=== PATIENT | female | born 1935 | race Caucasian/White ===

== ENCOUNTER 2019-01-09 12:14 | Emergency (ER) | payer SELFPAY ==
[2019-01-09 12:26] VITALS: BMI 25.4
--- NOTE | 2019-01-09 12:55 | PDOC ---
History of Present Illness - General Chief Complaint: Ear Problem Stated Complaint: FEVER/ EAR PAIN Time Seen by Provider: 01/09/19 12:30 History Source: Patient, Care Provider - History of Present Illness Initial Comments: 01/09/19 12:55 83 year old female BIB daughter complaining of headaches, body aches, bilateral ear pain for the last week. daughter reports that patient had a cough now better. Patient reports subjective fevers for the last 3 days no fever today. denies dizziness, nausea, chest pain, urinary symptoms. Patient reports that she has pain to the right side of her body. . Past medical history of hypertension, hypercholesterolemia, diabetes. Patient isvisiting here from [facility] for the last 1 month. Denies sick contact 01/09/19 13:15 Past History - Past Medical History Allergies/Adverse Reactions: Allergies Allergy/AdvReac Type Severity Reaction Status Date / Time No Known Allergies Allergy Verified 01/09/19 12:18 COPD: No Dementia: Yes Diabetes: Yes HTN: Yes Hypercholesterolemia: Yes - Immunization History Immunization Up to Date: No - Suicide/Smoking/Psychosocial Hx Smoking History: Former smoker Have you smoked in the past 12 months: No Information on smoking cessation initiated: No Hx Alcohol Use: No Drug/Substance Use Hx: No Review of Systems - Review of Systems Able to Perform ROS?: Yes Is the patient limited Bur[place]ian proficient: No Constitutional: Yes: Fever HEENTM: Yes: Ear Pain Respiratory: Yes: Cough Cardiac (ROS): No: Symptoms Reported, See HPI, Chest Pain, Edema, Irregular Heart Rate, Lightheadedness, Palpitations, Syncope, Chest Tightness, Other ABD/GI: No: Symptoms Reported, See HPI, Abdominal Distended, Abd. Pain w/ defecation, Blood Streaked Bowels, Constipated, Diarrhea, Difficulty Swallowing , Nausea, Poor Appetite, Poor Fluid Intake, Rectal Bleeding, Vomiting, Indigestion, Abdominal cramping, Tarry Stools, Other : Yes: Flank Pain (right side) *Physical Exam - Vital Signs Last Vital Signs Temp Pulse Resp BP Pulse Ox 97.8 F 97 H 18 181/93 H 97 01/09/19 12:18 01/09/19 12:18 01/09/19 12:18 01/09/19 12:18 01/09/19 12:18 - Physical Exam General Appearance: Yes: Appropriately Dressed HEENT: positive: TM Dull (b/l mild erythema to right TM). negative: Rhinorrhea Respiratory/Chest: positive: Lungs Clear, Normal Breath Sounds Cardiovascular: positive: Regular Rate, Tachycardia Gastrointestinal/Abdominal: positive: Normal Bowel Sounds, Soft. negative: Tender Extremity: positive: Normal Capillary Refill, Normal Inspection, Normal Range of Motion Integumentary: positive: Normal Color, Dry, Warm Neurologic: positive: emergency services dispatcher II-XII NML intact, Fully Oriented, Alert, Normal Mood/ Affect ED Treatment Course - LABORATORY CBC & Chemistry Diagram: 01/09/19 12:45 01/09/19 12:45 Medical Decision Making - Medical Decision Making 01/09/19 12:57 A: headache P: cbc cmp lipase ua urine culture chest xray patient to the main ER. CHarge Nurse June mukherjee. Dr. Mace is also made aware. *DC/Admit/Observation/Transfer Diagnosis at time of Disposition: Headache Qualifiers: Headache type: unspecified Headache chronicity pattern: acute headache Intractability: not intractable Qualified Code(s): R51 - Headache - Referrals - Patient Instructions - Post Discharge Activity
[2019-01-09 13:26] LABS: BASO % 1.4 % (0-2.0); HEMATOCRIT 36.1 % (32.4-45.2); HEMOGLOBIN 12.3 GM/dL (10.7-15.3); LYMPH % 38.5 % (8-40); MCH 30.9 pg (25.7-33.7); MCHC 33.9 g/dl (32.0-36.0); MEAN CELL VOLUME 91.2 fl (80-96); MEAN PLT VOLUME 8.3 fl (7.5-11.1); NEUT % 45.1 % (42.8-82.8); PLATELET COUNT 313 K/MM3 (134-434); RBC 3.96 M/mm3 (3.60-5.2); RDW 13.6 % (11.6-15.6)
--- NOTE | 2019-01-09 13:38 | PDOC ---
History of Present Illness - General Chief Complaint: Ear Problem Stated Complaint: FEVER/ EAR PAIN Time Seen by Provider: 01/09/19 12:30 History Source: Patient, Family (Daughter) Exam Limitations: Language Barrier (Zimbabwean only) - History of Present Illness Initial Comments: 83 yo F, HTN, HLD, NIDDM, hx kidney stone, hip replacement, p/w R ear pain. [place]an speaking only, has been in [place] for [place] 6 weeks. Had stroke in [place] around 5 months ago, now uses cane. Per daughter, first symptom was a cough 2 days ago, followed by R ear pain and R sided headache, then with subjective fevers. Patient also complains of chronic abdominal pain and chronic right shoulder pain. Denies SOB, wheezing, constipation/diarrhea. 01/09/19 13:33 Past History - Past Medical History Allergies/Adverse Reactions: Allergies Allergy/AdvReac Type Severity Reaction Status Date / Time No Known Allergies Allergy Verified 01/09/19 12:18 Home Medications: Ambulatory Orders Acetaminophen [Tylenol -] 500 mg PO Q4H #30 tablet 01/09/19 Metoclopramide HCl [Reglan] 10 mg PO DAILY PRN 10 Days #10 tablet 01/09/19 COPD: No Dementia: Yes Diabetes: Yes HTN: Yes Hypercholesterolemia: Yes - Immunization History Immunization Up to Date: No - Suicide/Smoking/Psychosocial Hx Smoking History: Former smoker Have you smoked in the past 12 months: No Information on smoking cessation initiated: No Hx Alcohol Use: No Drug/Substance Use Hx: No Review of Systems - Review of Systems Able to Perform ROS?: Yes (Zimbabwean only) Constitutional: Yes: Fever (subjective). No: Chills HEENTM: Yes: Cataracts, Ear Pain Respiratory: Yes: Cough. No: Orthopnea, Shortness of Breath Cardiac (ROS): No: Chest Pain ABD/GI: Yes: Other (chronic abdominal pain). No: Constipated, Diarrhea, Nausea , Vomiting : No: Burning, Dysuria, Discharge, Frequency, Flank Pain Musculoskeletal: No: Back Pain Neurological: Yes: Headache (R sided), Pre-Existing Deficit (stroke 5 months ago , now using cane) *Physical Exam - Vital Signs Last Vital Signs Temp Pulse Resp BP Pulse Ox 97.8 F 97 H 18 181/93 H 97 01/09/19 12:18 01/09/19 12:18 01/09/19 12:18 01/09/19 12:18 01/09/19 12:18 - Physical Exam Comments: Gen: NAD, appropriately dressed HEENT: atraumatic, normocephalic, b/l cataracts, L pupil does not constrict to light, R ear with single anteroinferior vesicle, TMs not bulging Neuro: CN II-XII intact b/l, AAOX4, 5/5 strength in all extremities CV: regular rate, regular rhythm, no murmurs Pulm: CTA b/l Abd: soft, non-distended, non-tender Extr: no edema Skin: patchy skin throughout body 01/09/19 13:38 ED Treatment Course - LABORATORY CBC & Chemistry Diagram: 01/09/19 12:45 01/09/19 12:45 - ADDITIONAL ORDERS Additional order review: 01/09/19 12:45 RBC 3.96 MCV 91.2 MCHC 33.9 RDW 13.6 MPV 8.3 Neutrophils % 45.1 Lymphocytes % 38.5 Monocytes % 10.0 Eosinophils % 5.0 H Basophils % 1.4 Medical Decision Making - Medical Decision Making CBC reviewed, wn 01/09/19 13:41 Na 132, Cr 1.6. Giving 500 cc NS 01/09/19 14:10 Glu 387. 01/09/19 14:17 Trop, lipase wn 01/09/19 14:41 CT reviewed, no acute lesion, L mastoid effusion. 01/09/19 16:44 Glu 143 01/09/19 17:17 *DC/Admit/Observation/Transfer Diagnosis at time of Disposition: Headache Qualifiers: Headache type: unspecified Headache chronicity pattern: acute headache Intractability: not intractable Qualified Code(s): R51 - Headache - Discharge Dispostion Disposition: HOME Condition at time of disposition: Improved Decision to Admit order: No - Prescriptions Prescriptions: Acetaminophen [Tylenol -] 500 mg PO Q4H #30 tablet Metoclopramide HCl [Reglan] 10 mg PO DAILY PRN 10 Days #10 tablet PRN Reason: Headache - Referrals Referrals: Timothy Dias MD [Staff Physician] - - Patient Instructions Printed Discharge Instructions: DI for Ear Pain-Adult Additional Instructions: You were seen with right ear pain and headache. Your lab tests and imaging were found to be normal. Please take your Tylenol and Reglan as prescribed. Please follow up with your primary care doctor; you can contact Dr. Dias. - Post Discharge Activity
[2019-01-09 14:07] LABS: ALK PHOS 67 U/L (45-117); ANION GAP 14 MMOL/L (8-16); BILIRUBIN,TOTAL 0.3 mg/dL (0.2-1); BLOOD UREA NITROGEN 21.1 mg/dL (7-18); CALCIUM 9.4 mg/dL (8.5-10.1); CHLORIDE 98 mmol/L (98-107); CO2 19 mmol/L (21-32); CREATININE 1.6 mg/dL (0.55-1.3); POTASSIUM 4.5 mmol/L (3.5-5.1); SGOT/AST 25 U/L (15-37); SGPT/ALT 40 U/L (13-61); SODIUM 132 mmol/L (136-145); TOT PROT 8.6 g/dl (6.4-8.2)
[2019-01-09] MEDS ORDERED: SODIUM CHLORIDE 500 ML IV STA ×2 (14:08→14:26)
[2019-01-09 14:15] LABS: GLUCOSE,RANDOM 387 mg/dL (74-106)
[2019-01-09 14:34] LABS: LIPASE 380 U/L (73-393)
[2019-01-09] MEDS ORDERED: METOCLOPRAMIDE HCL INJECTION 10 MG/2 ML VIAL IVPB ONE (15:45)
[2019-01-09] MEDS ORDERED: ACETAMINOPHEN 1000 MG/100 ML VIAL (NON FORMULARY) IVPB ONE (15:45)
--- NOTE | 2019-01-09 15:51 | PDOC ---
Documentation entered by Nayeli Quinones SCRIBE, acting as scribe for Moe Mace MD. Moe Mace MD: This documentation has been prepared by the azulibe, Nayeli Quinones SCRIBE, under my direction and personally reviewed by me in its entirety. I confirm that the documentation accurately reflects all work, treatment, procedures, and medical decision making performed by me. Attending Attestation - Resident Resident Name: LozanoElmo pnea - ED Attending Attestation I have performed the following: I have examined & evaluated the patient, The case was reviewed & discussed with the resident, I agree w/resident's findings & plan, Exceptions are as noted - HPI HPI: 01/09/19 13:30 The patient is an 83-year-old female accompanied by daughter, with a past medical history of HTN, HLD, DM, CVA (5 months ago), and dementia, who presents to the ED with subjective fevers, cough, RT-sided headache, and RT ear pain. Daughter states that the pt has had chronic headaches and ear pain for several years. Her headache and ear pain today are no different from her usual complaints. However, daughter notes that her subjective fever and cough are new , which prompted her to come to the ED. The patient has been visiting from the [place] for the past 6 weeks and has not established care here. The patient denies any nausea, vomiting, or diarrhea. Denies any chest pain, palpitations, or shortness of breath. Denies any urinary symptoms. Denies any weakness, dizziness, lightheadedness, or changes in strength or sensation. Allergies: NKA - Physicial Exam PE: 01/09/19 13:31 GENERAL: Awake, alert, and fully oriented, in no acute distress. HEAD: No signs of trauma EYES: PERRLA, EOMI, sclera anicteric, conjunctiva clear ENT: Auricles normal inspection, hearing grossly normal, nares patent, oropharynx clear without exudates. Moist mucosa NECK: Nontender, no stepoffs, Normal ROM, supple, no lymphadenopathy, JVD, or masses LUNGS: Breath sounds equal, clear to auscultation bilaterally. No wheezes, and no crackles HEART: Regular rate and rhythm, normal S1 and S2, no murmurs, rubs or gallops ABDOMEN: Soft, nontender, normoactive bowel sounds. No guarding, no rebound. No masses EXTREMITIES: Normal range of motion, no edema. No clubbing or cyanosis. No cords, erythema, or tenderness NEUROLOGICAL: Cranial nerves II through XII intact. 5/5 strength and sensation in all extremities, Normal speech, normal gait, normal cerebellar function SKIN: Warm, Dry, normal turgor, no rashes or lesions noted. - Medical Decision Making 01/09/19 15:55 83 F with chronic headache and ear pain. Exam normal, no neuro deficits, no evidence of otitis on exam. Pt has R facial droop but daughter reports this is chronic, unchanged from baseline. - Labs - CT head - Tylenol, reglan, IVF 01/09/19 17:15 Labs notable for gluc >300 CT head with mastoid effusion. However, pt with no clinical signs of mastoiditis. No fever or tenderness over mastoiditis. Fingerstick improved to <200 with fluids. UA with + LE but pt with no dysuria Pt is well appearing, with normal vitals. Clinically stable for DC at this time. I discussed the physical exam findings, ancillary test results and final diagnoses with the patient. I answered all of the patient's questions. The patient was satisfied with the care received and felt comfortable with the discharge plan and treatment plan. The patient agrees to follow up with the primary care physician within 24-72 hours.
[2019-01-09] MEDS ORDERED: METOCLOPRAMIDE HCL INJECTION 10 MG/2 ML VIAL ONE (16:12)
[2019-01-09] MEDS ORDERED: ACETAMINOPHEN INJECTION 100 ML IVPB ONE (16:13)
--- NOTE | 2019-01-09 17:17 | EKG ---
Test Reason : Blood Pressure : / mmHG Vent. Rate : 093 BPM Atrial Rate : 093 BPM P-R Int : 202 ms QRS Dur : 086 ms QT Int : 370 ms P-R-T Axes : 062 049 091 degrees QTc Int : 460 ms POOR DATA QUALITY, INTERPRETATION MAY BE ADVERSELY AFFECTED NORMAL SINUS RHYTHM ANTERIOR INFARCT , AGE UNDETERMINED ABNORMAL ECG NO PREVIOUS ECGS AVAILABLE Confirmed by SHELLEY BEAVERS MD ([id number]) on 01/09/2019 5:16:49 PM Referred By: Confirmed By:SHELLEY BEAVERS MD
[2019-01-09 17:38] LABS: URINE APPEARANCE CLEAR; URINE BILIRUBIN NEGATIVE (NEGATIVE); URINE COLOR YELLOW; URINE GLUCOSE (UA) 3+ (NEGATIVE); URINE KETONE NEGATIVE (NEGATIVE); URINE PROTEIN NEGATIVE (NEGATIVE); URINE UROBILINOGEN 0.2 mg/dL (0.2-1.0)
[2019-01-09 17:39] LABS: EPI CELLS 11.7 /HPF (0-5/HPF); HYALINE CASTS 312.68 /lpf (0-8); URINE BACTERIA 4888.7 /hpf (NEGATIVE); URINE LEUK ESTERASE 3+ (NEGATIVE); URINE NITRITE NEGATIVE (NEGATIVE); URINE RBC 0.3 /hpf (0-4); URINE WBC 4.2 /hpf (0-5)
[2019-01-09 17:53] VITALS: BP 149/68; PULSE 74; TEMP 98.6
== END 2019-01-09 18:09 | disposition home or self-care (01) ==
LOC: JERFT 12:14
PROC: 3E0337Z Introduction of Electrolytic and Water Balance Substance into Peripheral Vein, Percutaneous Approach (ICD-10-PCS; principal; 2019-01-09)
PROC: 3E033NZ Introduction of Analgesics, Hypnotics, Sedatives into Peripheral Vein, Percutaneous Approach (ICD-10-PCS; 2019-01-09)
PROC: 3E033GC Introduction of Other Therapeutic Substance into Peripheral Vein, Percutaneous Approach (ICD-10-PCS; 2019-01-09)
DX: R51 Headache (principal); I10 Essential (primary) hypertension; E78.5 Hyperlipidemia, unspecified; E11.9 Type 2 diabetes mellitus without complications; Z79.84 Long term (current) use of oral hypoglycemic drugs; F03.90 Unspecified dementia, unspecified severity, without behavioral disturbance, psychotic disturbance, mood disturbance, and anxiety; Z86.73 Personal history of transient ischemic attack (TIA), and cerebral infarction without residual deficits; Z87.440 Personal history of urinary (tract) infections; Z96.649 Presence of unspecified artificial hip joint
CPT/HCPCS: 36415; 70450-TC; 71046-TC-FY; 80053; 81003; 82962; 83690; 84484; 85025; 87086; 87186; 93005; 93010; 99283-25; J0131

== ENCOUNTER 2019-03-24 14:08 | Emergency (ER) | payer SELFPAY ==
[2019-03-24 14:31] VITALS: TEMP 98.2; BMI 27.3
--- NOTE | 2019-03-24 14:37 | PDOC ---
Rapid Medical Evaluation Chief Complaint: Headache Time Seen by Provider: 03/24/19 14:35 Medical Evaluation: Allergies Allergy/AdvReac Type Severity Reaction Status Date / Time No Known Allergies Allergy Verified 03/24/19 14:27 Vital Signs Temp Pulse Resp BP Pulse Ox 98.2 F 98 H 18 170/80 95 03/24/19 14:27 03/24/19 14:27 03/24/19 14:27 03/24/19 14:27 03/24/19 14:27 03/24/19 14:35 I have performed a brief in-person evaluation of this patient. The patient presents with a chief complaint of: 3 days of headache and L eye redness with drooping Pertinent physical exam findings: L eye conjunctiva redness with tearing and ectropion. Brief Neuro in triage WNLs The patient will proceed to the ED for further evaluation. Discharge Disposition - Diagnosis Headache - Referrals - Patient Instructions - Post Discharge Activity
--- NOTE | 2019-03-24 15:47 | PDOC ---
History of Present Illness - General Chief Complaint: Headache Stated Complaint: LT SIDE HEADACHE Time Seen by Provider: 03/24/19 14:35 - History of Present Illness Initial Comments: 03/24/19 15:47 83 yo F, HTN, HLD, NIDDM, hx kidney stone, hip replacement, prior stroke (7 months ago), chronic headache and ear pain and chronic R facial droop. Here 2 months ago for headache with head CT that showed mastoid effusion without clinical signs of mastoiditis. The patient presents with complaints of a headache simlar to chronic headaches. ROS GENERAL/CONSTITUTIONAL: No fever or chills. No weakness. HEAD, EYES, EARS, NOSE AND THROAT: No change in vision. No ear pain or discharge. No sore throat. CARDIOVASCULAR: No chest pain or shortness of breath RESPIRATORY: No cough, wheezing, or hemoptysis. GASTROINTESTINAL: No nausea, vomiting, diarrhea or constipation. GENITOURINARY: No dysuria, frequency, or change in urination. MUSCULOSKELETAL: No joint or muscle swelling or pain. No neck or back pain. SKIN: No rash NEUROLOGIC: + headache, No vertigo, loss of consciousness, or change in strength /sensation. PE GENERAL: Awake, alert, and fully oriented, in no acute distress HEAD: No signs of trauma, normocephalic, atraumatic EYES: PERRLA, EOMI, sclera anicteric, conjunctiva clear ENT: oropharynx clear without exudates. Moist mucosa NECK: Normal ROM, supple LUNGS: No distress, speaks full sentences, clear to auscultation bilaterally HEART: Regular rate and rhythm, normal S1 and S2, no murmurs, rubs or gallops, peripheral pulses normal and equal bilaterally. MDM DDX including but not limited to: migraine r/o intracranial pathology ED Course: labwork and head ct w/o acute pathology Patient showed symptomatic improvement stable for d/c with pcp f/u Lindy Heard, PGY2 Emergency Medicine Past History - Past Medical History Allergies/Adverse Reactions: Allergies Allergy/AdvReac Type Severity Reaction Status Date / Time No Known Allergies Allergy Verified 03/24/19 14:27 Home Medications: Ambulatory Orders Acetaminophen [Tylenol -] 500 mg PO Q4H #30 tablet 01/09/19 Metoclopramide HCl [Reglan] 10 mg PO DAILY PRN 10 Days #10 tablet 01/09/19 Nitrofurantoin Monohyd/M-Cryst [Macrobid -] 100 mg PO BID #14 capsule 01/12/19 Erythromycin 0.5% Eye Ointment [Erythromycin 0.5% Eye Ointment -] 1 applic OS DAILY #1 tube 03/24/19 COPD: No Dementia: Yes Diabetes: Yes HTN: Yes Hypercholesterolemia: Yes - Immunization History Immunization Up to Date: No - Psycho Social/Smoking Cessation Hx Smoking History: Former smoker Have you smoked in the past 12 months: No Information on smoking cessation initiated: No Hx Alcohol Use: No Drug/Substance Use Hx: No *Physical Exam - Vital Signs Last Vital Signs Temp Pulse Resp BP Pulse Ox 98.2 F 98 H 18 170/80 95 03/24/19 14:27 03/24/19 14:27 03/24/19 14:27 03/24/19 14:27 03/24/19 14:27 ED Treatment Course - LABORATORY CBC & Chemistry Diagram: 03/24/19 16:20 03/24/19 16:20 Discharge - Discharge Information Problems reviewed: Yes Clinical Impression/Diagnosis: Headache Condition: Stable Disposition: HOME - Admission No - Additional Discharge Information Prescriptions: Erythromycin 0.5% Eye Ointment [Erythromycin 0.5% Eye Ointment -] 1 applic OS DAILY #1 tube - Follow up/Referral - Patient Discharge Instructions Patient Printed Discharge Instructions: DI for Conjunctivitis, DI for Headache Additional Instructions: You were seen in the ED for complaints of headache In the ED you were evaluated with labwork and imaging. Your results were unremarkable and you showed improvement with symptomatic treatment There does not appear to be an acute need for immediate hospitalization. You are advised to follow up with your Primary Care Physician within 1 week. You were given a prescription for antibiotic eyedrops that should be taken as prescribed. Return to the ED immediately if you experience worsening headache, nausea, vomiting, dizziness or any other concerning symptoms. Usted fue visto en el servicio de urgencias por quejas de dolor de joseph En el servicio de urgencias, se lo evalu con anlisis de laboratorio e imgenes. Lucy resultados no fueron notables y mostr colby mejora con el tratamiento sintomtico No parece rosa colby necesidad aguda de hospitalizacin inmediata. Se recomienda hacer un seguimiento con hayes mdico de atencin primaria dentro de 1 semana. Le dieron colby receta para gotas para los ojos con antibiticos que deben tomarse segn lo prescrito. Regrese al servicio de urgencias de inmediato si experimenta un empeoramiento del dolor de joseph, nuseas, vmitos, mareos o cualquier otro sntoma relacionado. - Post Discharge Activity
[2019-03-24] MEDS ORDERED: METOCLOPRAMIDE HCL INJECTION 10 MG/2 ML VIAL IVPUSH ONE (16:07)
[2019-03-24] MEDS ORDERED: ACETAMINOPHEN 1000 MG/100 ML VIAL (NON FORMULARY) IVPB ONE (16:07)
--- NOTE | 2019-03-24 16:11 | PDOC ---
Attending Attestation - Resident Resident Name: Lindy Heard - ED Attending Attestation I have performed the following: I have examined & evaluated the patient, The case was reviewed & discussed with the resident, I agree w/resident's findings & plan, Exceptions are as noted - HPI HPI: 03/24/19 16:03 Three days of headache similar to prior Ms. Che is an 83-year-old female accompanied by daughter, with a past medical history of HTN, HLD, DM, CVA (6 months ago), and dementia, who presents to the ED with a complaint of headahce which has been present constant for the past 3 days. Pt has had chronic headaches, this current headache is unchanged from prior headaches. They have been unable to relieve her headache with po medication. The patient denies any nausea, vomiting, or diarrhea. Denies any chest pain, palpitations, or shortness of breath. Denies any weakness, dizziness, lightheadedness, or changes in strength or sensation. Allergies: NKA 03/24/19 17:22 - Physicial Exam PE: 03/24/19 16:22 GENERAL: The patient is in no acute distress, hard of hearing. HEENT: Left conjunctival injection, oropharynx clear without exudates. Moist mucous membranes. NECK: Normal range of motion, supple LUNGS: Breath sounds equal, clear to auscultation bilaterally. No wheezes, and no crackles. HEART:Regular rate and rhythm, normal S1 and S2 without murmur, rub or gallop. ABDOMEN: Soft, nontender, normoactive bowel sounds. EXTREMITIES: Normal range of motion, no edema. NEUROLOGICAL: Cranial nerves II through XII grossly intact. Normal speech. No focal neurological deficits. SKIN: Warm, Dry, normal turgor, no rashes or lesions noted. 03/24/19 17:23 - Medical Decision Making 03/24/19 17:26 83 yo F presenting with chronic headaches who has had 3 days of headache not improved with home medications Pt headache now improved Will do CT head 03/24/19 17:31 03/24/19 17:36 Laboratory Tests 01/09/19 03/24/19 03/24/19 12:45 16:20 16:20 WBC 4.9 Hgb 11.6 Hct 34.8 Plt Count 299 Sodium 130 L Potassium 4.8 Chloride 100 BUN 21.1 H 21.3 H Creatinine 1.6 H 1.3 Random Glucose 387 H* [address] pending Will plan to discharge to home Follow up with PMD
[2019-03-24] MEDS ORDERED: SODIUM CHLORIDE 1,000 ML IV SCH (16:15)
[2019-03-24] MEDS ORDERED: ACETAMINOPHEN INJECTION 100 ML IVPB ONE (16:17)
[2019-03-24] MEDS ORDERED: METOCLOPRAMIDE HCL INJECTION 10 MG/2 ML VIAL ONE (16:17)
[2019-03-24 16:45] LABS: BASO % 1.3 % (0-2.0); EOS % 3.7 % (0-4.5); HEMATOCRIT 34.8 % (32.4-45.2); HEMOGLOBIN 11.6 GM/dL (10.7-15.3); LYMPH % 32.4 % (8-40); MCH 30.4 pg (25.7-33.7); MCHC 33.3 g/dl (32.0-36.0); MEAN CELL VOLUME 91.3 fl (80-96); MEAN PLT VOLUME 8.3 fl (7.5-11.1); MONO % 9.5 % (3.8-10.2); NEUT % 53.1 % (42.8-82.8); PLATELET COUNT 299 K/MM3 (134-434); RBC 3.81 M/mm3 (3.60-5.2); RDW 13.2 % (11.6-15.6); WHITE BLOOD COUNT 4.9 K/mm3 (4.0-10.0)
[2019-03-24 17:18] LABS: ALBUMIN 3.6 g/dl (3.4-5.0); BILIRUBIN,TOTAL 0.2 mg/dL (0.2-1); BLOOD UREA NITROGEN 21.3 mg/dL (7-18); CALCIUM 9.3 mg/dL (8.5-10.1); CREATININE 1.3 mg/dL (0.55-1.3); POTASSIUM 4.8 mmol/L (3.5-5.1); TOT PROT 7.7 g/dl (6.4-8.2)
[2019-03-24 19:41] VITALS: BP 162/83; PULSE 94
--- NOTE | 2019-03-25 12:52 | EKG ---
Test Reason : Blood Pressure : / mmHG Vent. Rate : 076 BPM Atrial Rate : 076 BPM P-R Int : 196 ms QRS Dur : 088 ms QT Int : 406 ms P-R-T Axes : -02 041 071 degrees QTc Int : 456 ms NORMAL SINUS RHYTHM NORMAL ECG WHEN COMPARED WITH ECG OF 09-JAN-2019 13:02, NO SIGNIFICANT CHANGE WAS FOUND Confirmed by Octavio Foster MD ([id number]) on 03/25/2019 12:52:03 PM Referred By: Confirmed By:Octavio Foster MD
== END 2019-03-24 19:40 | disposition home or self-care (01) ==
LOC: JER 14:08
PROC: 3E033GC Introduction of Other Therapeutic Substance into Peripheral Vein, Percutaneous Approach (ICD-10-PCS; principal; 2019-03-24)
PROC: 3E033NZ Introduction of Analgesics, Hypnotics, Sedatives into Peripheral Vein, Percutaneous Approach (ICD-10-PCS; 2019-03-24)
DX: R51 Headache (principal); H10.32 Unspecified acute conjunctivitis, left eye; I10 Essential (primary) hypertension; E78.5 Hyperlipidemia, unspecified; E11.9 Type 2 diabetes mellitus without complications; Z79.84 Long term (current) use of oral hypoglycemic drugs; Z86.73 Personal history of transient ischemic attack (TIA), and cerebral infarction without residual deficits; Z87.442 Personal history of urinary calculi; Z96.649 Presence of unspecified artificial hip joint
CPT/HCPCS: 36415; 70450-TC; 80053; 82962; 85025; 93005; 93010; 99282-25; J0131; J7030